=== PATIENT | male | born 1950 | race Caucasian/White ===

== ENCOUNTER 2018-03-12 10:00 | Outpatient (RCR) | payer OTHER, SELFPAY ==
[2017-12-09 11:03] VITALS: BP 138/78; BMI 25.6
--- NOTE | 2017-12-09 11:53 | CR.IEVALNOTE ---
Addendum entered and electronically signed by Ana Castillo R.N. 12/09/17 11:55: 3. CABG X4. . STENTS X2 Original Note: CR Initial Assessment Report CR Cardiac Rehab Initial Assessment Start: 12/08/17 07:57 Freq: Status: Active Protocol: Document 12/09/17 11:03 [facility] (Rec: 12/09/17 11:34 [facility] [id number]) Cardiac Rehabilitation Exercise Risk Risk High % 64% AICD No Pacemaker No Heart Rhythm NSR Right Arm Blood Pressure (90/60-120/80 mmHg) 138/78 H Blood Pressure Method Manual Cuff/Auscultation Blood Pressure Position Sitting BP Comment: L ARM 134/80 Respiratory Effort Non-Labored Respiratory Depth Normal Lung Sounds: CLEAR THROUGHOUT. NO RUB HEARD . HX:DRESSLERS SYNDROME Nasal Cannula No Cardiac Rehabilitation Exercise Fall Risk History of Falling (Immediate or No Previous) CR Pre Exercise Evaluation Orientation Self Pulse Check DYLON PRE Scale Exercise Safety Equipment Orientation Warm Up/Cool Down Cardiac Rehabilitation Nutrition Evaluation Recent Lipid Blood Test Yes Date Blood Test Drawn 09/27/16 Total Cholesterol 138 Triglycerides 78 HDL 52 LDL 70 Lipid Medications Yes: ATORVASTATIN Goal for Lipids @GOAL History of Diabetes No Cardiac Rehabilitation Weight Management Plan Height 165.1 cm Weight 69.853 kg Body Mass Index (BMI) 25.6 Girth Measurement (in inches) (cm) 35.25 Comment GAIN 5# MUSCLE BACK Vitamins & Supplements No Use None/Never Nutrition Evaluation Referral to Diabetes Education No Nurse/Patient Discussion Yes Diet Discussion EATS HEALTHY Patient Following Diet Plan No Diet Dash Education Primary Language [place] Hearing Ability Normal Visual Impairment No Limitations Education on Intake Chest Pain Short of Breath Headache Lightheaded or Dizzy Musculoskeletal Pain General Malaise Tobacco Use N/A Hx Hypertension Yes Medications METOPROLOL AND ISOSORBIDE Goal of BP <130/80 Yes HTN Education Discussion DISCUSSED DASH DIET Medications Reconciled Yes Any Additional Comment WILL SEE DR. GRAY THIS AFTERNOON. DISCUSSED IMPORTANCE OF LETTING ME KNOW IF THERE ARE CHANGES IN MEDS CR Psychosocial Evaluation Goal WHEN WALKING AT HOME HAVING CHEST PAIN. NEEDS REASSURANCE AND CONFEDENCE TO EXERCISE AGAIN. Identifies Stressors RIGHT NOW HIS STRESS IS CHEST PAIN. Psych Consult No Discussion with Patient Yes Psychotropic Medications No PHQ9 Score 2 HQ Scoring Scale 0-4 = None Situation LIVES AT HOME ON [address] WITH . 2 CHILDREN AND 5 GRANDCHILDREN Employment Status Retired Occupation / Employer WORKS ON [employer] NOW. Ready for Change Number +31 CR Psychosocial Eval Continued Sternotomy Incision WELL HEALED Graft Site & Incision L LEG AND ARM HEALED Heart Murmur NONE Lung Sounds CLEAR Edema NONE Stress Management Class Yes Heart Disease & Emotion Film Yes Readiness Cooperative Motivated Patient's Story [place] @ 10,000 ELEVATION HAD CHEST PAIN. WENT TO [place]. HAD ANGIOGRAM FOUND BLOCKAGE BUT HAD STROKE IN HOSPITAL. L.LEG;LARM;L SIDE OF NOSE. RESOLVED WITHIN 2 WEEKS . THIS DELAYED THE CABG UNTIL 10.24.2017. POST CABG HAD DRESSLERS SYNDROME. SEVERAL WEEKS LATER HAD CHEST PAIN - BACK TO [place] AND HAD BLOCKAGE IN BYPASS AND HAD 2 STENTS PLACED. STILL HAVING CHEST PRESSURE WITH EXERTION. Treatment Prescribed for Individual Yes Needs No Treatment Change Yes: Please Continue with Cardiopulmonary Rehabilitation as Ordered
--- NOTE | 2017-12-09 13:43 | CR.IEVALNOTE ---
CR Initial Assessment Report CR Cardiac Rehab Initial Assessment Start: 12/08/17 07:57 Freq: Status: Active Protocol: Document 12/09/17 11:03 [facility] (Rec: 12/09/17 11:34 [facility] [id number]) Cardiac Rehabilitation Exercise Risk Risk High % 64% AICD No Pacemaker No Heart Rhythm NSR Right Arm Blood Pressure (90/60-120/80 mmHg) 138/78 H Blood Pressure Method Manual Cuff/Auscultation Blood Pressure Position Sitting BP Comment: L ARM 134/80 Respiratory Effort Non-Labored Respiratory Depth Normal Lung Sounds: CLEAR THROUGHOUT. NO RUB HEARD . HX:DRESSLERS SYNDROME Nasal Cannula No Cardiac Rehabilitation Exercise Fall Risk History of Falling (Immediate or No Previous) CR Pre Exercise Evaluation Orientation Self Pulse Check DYLON PRE Scale Exercise Safety Equipment Orientation Warm Up/Cool Down Cardiac Rehabilitation Nutrition Evaluation Recent Lipid Blood Test Yes Date Blood Test Drawn 09/27/16 Total Cholesterol 138 Triglycerides 78 HDL 52 LDL 70 Lipid Medications Yes: ATORVASTATIN Goal for Lipids @GOAL History of Diabetes No Cardiac Rehabilitation Weight Management Plan Height 165.1 cm Weight 69.853 kg Body Mass Index (BMI) 25.6 Girth Measurement (in inches) (cm) 35.25 Comment GAIN 5# MUSCLE BACK Vitamins & Supplements No Use None/Never Nutrition Evaluation Referral to Diabetes Education No Nurse/Patient Discussion Yes Diet Discussion EATS HEALTHY Patient Following Diet Plan No Diet Dash Education Primary Language KHMER Hearing Ability Normal Visual Impairment No Limitations Education on Intake Chest Pain Short of Breath Headache Lightheaded or Dizzy Musculoskeletal Pain General Malaise Tobacco Use N/A Hx Hypertension Yes Medications METOPROLOL AND ISOSORBIDE Goal of BP <130/80 Yes HTN Education Discussion DISCUSSED DASH DIET Medications Reconciled Yes Any Additional Comment WILL SEE DR. GRAY THIS AFTERNOON. DISCUSSED IMPORTANCE OF LETTING ME KNOW IF THERE ARE CHANGES IN MEDS CR Psychosocial Evaluation Goal WHEN WALKING AT HOME HAVING CHEST PAIN. NEEDS REASSURANCE AND CONFEDENCE TO EXERCISE AGAIN. Identifies Stressors RIGHT NOW HIS STRESS IS CHEST PAIN. Psych Consult No Discussion with Patient Yes Psychotropic Medications No PHQ9 Score 2 HQ Scoring Scale 0-4 = None Situation LIVES AT HOME [place] [address] WITH . 2 CHILDREN AND 5 GRANDCHILDREN Employment Status Retired Occupation / Employer WORKS ON [employer] NOW. Ready for Change Number +31 CR Psychosocial Eval Continued Sternotomy Incision WELL HEALED Graft Site & Incision L LEG AND ARM HEALED Heart Murmur NONE Lung Sounds CLEAR Edema NONE Stress Management Class Yes Heart Disease & Emotion Film Yes Readiness Cooperative Motivated Patient's Story [place] @ 10,000 ELEVATION HAD CHEST PAIN. WENT TO [place]. HAD ANGIOGRAM FOUND BLOCKAGE BUT HAD STROKE IN HOSPITAL. L.LEG;LARM;L SIDE OF NOSE. RESOLVED WITHIN 2 WEEKS . THIS DELAYED THE CABG UNTIL 10.24.2017. POST CABG HAD DRESSLERS SYNDROME. SEVERAL WEEKS LATER HAD CHEST PAIN - BACK TO [place] AND HAD BLOCKAGE IN BYPASS AND HAD 2 STENTS PLACED. STILL HAVING CHEST PRESSURE WITH EXERTION. Treatment Prescribed for Individual Yes Needs No Treatment Change Yes: Please Continue with Cardiopulmonary Rehabilitation as Ordered Document 12/09/17 12:29 [facility] (Rec: 12/09/17 12:33 [facility] [id number]) Cardiac Rehabilitation Exercise Fall Risk History of Falling (Immediate or No Previous) Secondary Diagnosis (More Than 2 Medical Yes Diagnoses) Ambulatory Aid None/bed rest/nurse assist IV/Heparin Lock No Gait/Transferring Normal/bedrest/immobile Mental Status Oriented to own ability Score Total 15 Risk Level Low Fall Risk Action Implement Wister Fall Risk Precautions Comment Green physio ball, seated next to railing, Assistive Devices None [place] Activity Status Index 9.89 Home Exercise Yes Mode Comment: walking Duration Comment: .5-1mi Frequency Comment: 3x /day Symptoms: Limited Range of Motion Neck Pain Body Alignment Posture Good Posture Ambulation Assistive Device None Orthotic/Prosthetic Devices or Brace: No Comment limited ROM R shoulder Exercise TM METS 3.89 Angina with Exercise yes Exercise Tolerance Good Additional Comment onset chest pressure 1/10 with incline, resolved after reduced speed and decline CR Pre Exercise Evaluation Patient Short-term Goal(s) return to hiking, attain by identifying angina limitations , improve tolerance/endurance with incline in 8 weeks Patient Intermediate Goal(s) finish repairing boat, return to sailing by increasing strength after sternal, return to TRX, by being able to utilize 8-10 lb weights in 12 weeks. CR Exercises Prescription Exercise Duration (minutes) 20 METs (resistance level) 3 Frequency 2 times per week RPE 11-14 Exercise Duration (minutes) 20 METs (resistance level) 4 Frequency 2x per week RPE 11-14 Comment keep angina at 2/10 or below Pounds 3 Number of Reps 12 Number of Sets 2 Frequency 1x per week RPE 13-14 Comment sternal precautions Band Resistance 3 Number of Reps 12 Number of Sets 1 Frequency 1x per week RPE 13/14 Comment sternal precautions
[2018-01-07 13:52] VITALS: BP 112/74; RESP 12
--- NOTE | 2018-01-07 14:51 | CR.REVALNOTE ---
CR Initial Assessment Report CR Cardiac Rehab Re-Assessment Start: 01/07/18 13:51 Freq: Status: Active Protocol: Document 01/07/18 13:52 [facility] (Rec: 01/07/18 13:58 [facility] [id number]) Cardiac Rehab Exercise Risk Re-Eval Dx: 10.14.2017 CABG X4 11.06.17 STENTS X 2 Risk High Heart Rhythm NSR. ST Right Arm Blood Pressure (90/60-120/80 mmHg) 112/74 Apical Resting Heart Rate: 85 Target Heart Rate: 136 Respiratory Rate (12-24 breaths/min) 12 Angina with Exercise NO Cardiac Rehab Nutrition Re-Eval Lipids Re-Drawn No History of Diabetes No Weight 69.853 kg Progress to Weight Goal @ GOAL Dietary Consult Yes Education Hypertension B/P CONTROLLED Medications METOPROLOL Medication Reconciled DONE. CR Psychosocial Re-Evaluation Progress to Goal FEELS BETTER ABOUT HIS CHEST PAIN WHILE EXERCISNG AND USING ISOSORBIDE ACCORDING TO MD DIRECTIONS Stress Managed YES Psych Consult No Uses Stress Management Skills Yes Note NEGATIVE CR Psychosocial Provider Eval Treatment Prescribed for Individual Yes Needs Date 01/07/18 Document 01/07/18 14:42 [facility] (Rec: 01/07/18 14:51 [facility]FS [id number]) Cardiac Rehab Exercise Risk Re-Eval Angina with Exercise Yes, exertional 3-4/10 CR Lifestyle Re-Assessment Home Exercise Yes Mode Comment walking Duration Comment 1 mi Frequency Comment 2x/wk Achieved Exercise Re-Evaluation Nustep MET Goal 4.48 Treadmill MET Goal 4.33 RPE n/a Weights 4# Bands lvl 4 - Dk Blue Equipment Goals TM - 5.25 NS - 5.50 Number/Value 5# LVL Lvl 5 - Teal Progress to Goal Increase as tolerated per sternal precautions % Improvement TM - 11% NS - 24% Short Term Using a slight incline while on TM, endurance has been great. Completes all 40 min and tolerates well. Still trying to find limits on CP. Find while on walks at home, that CP starts to dimish as he continues to walk. Still not going on hiking trails. [employer] no sailing, or no working on boat to finish. To finish boat it requires heavy lifting which is still not able to do per sternal precautions. No use of TRX also because of sternals. Will continue to increase weights from a now 4# to achieve 8-10# by end of time in CR.
--- NOTE | 2018-02-05 11:04 | CR.REVALNOTE ---
CR Re-Assessment Report CR Cardiac Rehab Re-Assessment Start: 01/07/18 13:51 Freq: Status: Active Protocol: Document 01/07/18 13:52 [facility] (Rec: 01/07/18 13:58 [facility] [id number]) Cardiac Rehab Exercise Risk Re-Eval Dx: 10.14.2017 CABG X4. 4.21.18 STENTS X 2 Risk High Heart Rhythm NSR. ST Right Arm Blood Pressure (90/60-120/80 mmHg) 112/74 Apical Resting Heart Rate: 85 Target Heart Rate: 136 Respiratory Rate (12-24 breaths/min) 12 Angina with Exercise NO Cardiac Rehab Nutrition Re-Eval Lipids Re-Drawn No History of Diabetes No Weight 69.853 kg Progress to Weight Goal @ GOAL Dietary Consult Yes Education Hypertension B/P CONTROLLED Medications METOPROLOL Medication Reconciled DONE. CR Psychosocial Re-Evaluation Progress to Goal FEELS BETTER ABOUT HIS CHEST PAIN WHILE EXERCISNG AND USING ISOSORBIDE ACCORDING TO MD DIRECTIONS Stress Managed YES Psych Consult No Uses Stress Management Skills Yes Note NEGATIVE CR Psychosocial Provider Eval Treatment Prescribed for Individual Yes Needs Date 01/07/18 Document 01/07/18 14:42 CFS (Rec: 01/07/18 14:51 CFS [id number]) Cardiac Rehab Exercise Risk Re-Eval Angina with Exercise Yes, exertional 3-4/10 CR Lifestyle Re-Assessment Home Exercise Yes Mode Comment walking Duration Comment 1 mi Frequency Comment 2x/wk Achieved Exercise Re-Evaluation Nustep MET Goal 4.48 Treadmill MET Goal 4.33 RPE n/a Weights 4# Bands lvl 4 - Dk Blue Equipment Goals TM - 5.25 NS - 5.50 Number/Value 5# LVL Lvl 5 - Teal Progress to Goal Increase as tolerated per sternal precautions % Improvement TM - 11% NS - 24% Short Term Using a slight incline while on TM, endurance has been great. Completes all 40 min and tolerates well. Still trying to find limits on CP. Find while on walks at home, that CP starts to dimish as he continues to walk. Still not going on hiking trails. 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 To finish boat it requires heavy lifting which is still not able to do per sternal precautions. No use of TRX also because of sternals. Will continue to increase weights from a now 4# to achieve 8-10# by end of time in CR. Document 02/05/18 10:43 MARY (Rec: 02/05/18 10:47 MARY [id number]) Cardiac Rehab Exercise Risk Re-Eval Dx: CABX X 4 10/14/17; STENT X 2 07/14 Risk High Heart Rhythm SR Cardiac Rehab Nutrition Re-Eval Lipids Re-Drawn No History of Diabetes No Weight 67.132 kg Progress to Weight Goal AT GOAL Dietary Consult No Nurse/Patient Discussion Yes Nutrition Class Yes Dietary Goal verbalized by Patient Yes Progress Note ATTENDED CLASSES GIVEN Education Tobacco Use N/A Hypertension 128/64 PRE 118/56 POST Medications METOPROLOL 25MG QD Progress to Goal AT GOAL Medication Reconciled CHANGED ISOSORBIDE TO 60MG QD (UP FROM 30MG/DAY) CR Psychosocial Re-Evaluation Progress to Goal FEELING MORE CONFIDENT IN DEALING WITH CP WITH MORE INTENSE EXERCISE. LEARNING HOW TO MODIFY TO HAVE SLIGHT PAIN ONLY. HAS STARTED DOING ACTIVITIES AT HOME SUCCESSFULLY. Stress Managed YES Psych Consult No Stress Management Class Yes Uses Stress Management Skills Yes Coping Techniques Yes Relaxation Techniques Yes Positive Support Yes Note NO CHANGES CR Psychosocial Provider Eval Treatment Prescribed for Individual Yes Needs No Treatment Change Yes: Please Continue with Cardiopulmonary Rehabilitation as Ordered Date 02/05/18 Document 02/05/18 10:53 AA (Rec: 02/05/18 11:04 AA [id number]) Achieved Exercise Re-Evaluation Ellipitcal MET Goal 9.1 Nustep MET Goal 5.03 Treadmill MET Goal 4.43 RPE n/a Weights 8# Bands Lvl 5 - Teal Equipment Goals TM - 5.50 NS - 5.50 EP - 9.50 Number/Value 10# LVL Lvl 6 Progress to Goal Increase as tolerated % Improvement Tm - 2% NS - 12% Short Term Still working on increasing stamina and endurance, completes 40 mins, but angina 3.0 with increase of intensity . Security Orderly Starting to use TRX at [employer], walking 3-4 miles at home 4 days/wk.
--- NOTE | 2018-02-26 10:26 | CR.EDUC ---
CR Education Report JAD [facility]FIELD CR Education Start: 12/09/17 11:49 Freq: Status: Active Protocol: Document 12/09/17 11:49 JCP (Rec: 12/09/17 11:50 JCP [id number]) CR Education Education BRAYDEN. CARRYING NITRO WITH HIM. HE WILL TALK TO DR. GRAY RE TAKING IT PRIOR TO EXERCISE. Document 12/10/17 10:15 AA (Rec: 12/11/17 08:16 AA [id number]) CR Education Education Discussed and explained METs for the purpose of measuring exercise intensity. Explained and discussed [facility] Stress test. Document 12/10/17 12:19 JCP (Rec: 12/10/17 12:20 JCP [id number]) CR Education Education Attended class with Rigoberto Yoon on weight loss diet plans. Document 12/10/17 15:22 JCP (Rec: 12/10/17 15:25 JCP [id number]) CR Education Education Met with Rigoberto James RD on Weight loss. Education First full day in CR. Dr. Mina instructed him yesterday ov to exercise to cp 5/10. He is having a stress test tomorrow. Concern he has small vessel that is causing cp. Will have him go to 3/10 cp now. instructed to back off machine when he starts having cp. It does radiate to his arm.OZ Document 12/11/17 14:37 MARY (Rec: 12/11/17 14:38 MARY [id number]) CR Education Education pt intro and hx review. discussed events leading up to cardiac event(s). 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 Document 12/11/17 15:58 AA (Rec: 12/11/17 15:59 AA [id number]) CR Education Education Explained sternal precautions with resistance bands pertaining to ROM. Document 12/17/17 12:35 JCP (Rec: 12/17/17 12:35 JCP [id number]) CR Education Education Medication review actions and side effects Document 12/24/17 11:24 MARY (Rec: 12/24/17 11:24 MRAY [id number]) CR Education Education implantable devices with elaine Document 12/31/17 12:02 JCP (Rec: 12/31/17 12:03 JCP [id number]) CR Education Education Met with jamarcus CINTRON on METS and HIIT Document 01/01/18 15:52 AA (Rec: 01/01/18 15:53 AA [id number]) CR Education Education Discussed resistance training, explained the difference between isometric, eccentric and concentric contractions and how they correlate to strength and flexibility. Document 01/07/18 11:57 JCP (Rec: 01/07/18 11:57 JCP [id number]) CR Education Education AED REVIEW Document 01/14/18 14:19 JCP (Rec: 01/14/18 14:19 JCP [id number]) CR Education Education MET WITH RIGOBERTO JAMES RD Document 01/15/18 12:13 JCP (Rec: 01/15/18 12:14 JCP [id number]) CR Education Education Long discussion on Isosorbide and chest pressure and exercise. Yuniel is finding the correlation between these 3 variables.OZ Document 01/21/18 11:20 MARY (Rec: 01/21/18 11:21 MARY [id number]) CR Education Education holistic nutrition and meditation with mony Document 01/22/18 13:44 JCP (Rec: 01/22/18 13:45 JCP [id number]) CR Education Education GETTING A BETTER CONTROL OF HIS [place] WHEN HE IS ON MACHINES. HE IS LEARNING WHEN TO SLOW AND LET THE CP EASE AND THEN INCREASE AGAIN.OZ Document 02/04/18 11:14 MARY (Rec: 02/04/18 11:14 MARY [id number]) CR Education Education MRSA WITH ELAINE Document 02/09/18 11:33 JCP (Rec: 02/09/18 11:35 JCP [id number]) CR Education Education YUNIEL HAD CP 6/10 TODAY ON ELLIPITICAL. LONG DISCUSSION ON STARTING HIIT TOO SOON NEEDS 10 MIN OF WARM UP IN ADDITION TO STRETCHES. ST DEPRESSION DURING CP. WHEN HE STOPPED THE PAIN WENT AWAY ALMOST IMMEDIATELY.OZ Document 02/11/18 15:50 JCP (Rec: 02/11/18 15:51 JCP [id number]) CR Education Education ANTI INFLAMMATORY FOODS AND MEDITATION Education DISCUSSED HIS CP AND STARTING AT LOW INTENSITY FOR 10 MINUTES Document 02/18/18 12:09 JCP (Rec: 02/18/18 12:10 JCP [id number]) CR Education Education MET WITH RIGOBERTO JAMES RD Document 02/19/18 10:35 MARY (Rec: 02/19/18 10:38 MARY [id number]) CR Education Education Reported having 3-4 episodes of CP when he goes to bed and is lying recumbent. Has gotten as severe as 5/10 and was relieved with 1 ntg. Rx isosorbide 60mg for which he takes 30mg at 7-8am, and the second 30mg at 9-1030am depending on activity level. Had found that 60mg at one time seemed to wear off by 2pm -heather and the cp would start to increase. Called Jori's office in [place] and spoke to his nurse Mari (female). She will relay info and call both Yuniel and us back with recommendations. Document 02/25/18 16:06 JCP (Rec: 02/25/18 16:07 JCP [id number]) CR Education Education MET WITH JAMARCUS CINTRON ON METS Document 02/26/18 10:25 JCP (Rec: 02/26/18 10:25 JCP [id number]) CR Education Education LESS CHEST PRESSURE TODAY ON THE AE. OZ
== END 2018-03-13 08:30 ==
LOC: CAR 10:00
PROVIDERS: PCP Family Medicine; Visit Provider Physician Assistant
DX: I25.10 Atherosclerotic heart disease of native coronary artery without angina pectoris (principal)
CPT/HCPCS: 93798